=== PATIENT | male | born 1955 | race Caucasian/White ===

== ENCOUNTER 2017-01-05 05:15 | Inpatient (IN) | payer MEDICAID, OTHER ==
[2017-01-05] MEDS ORDERED: Iohexol 240 (50 ml) PO ONE (06:15)
[2017-01-05] MEDS ORDERED: Sodium Chloride 0.9% 1,000 ML IV ONE ×2 (06:15→11:51)
--- NOTE | 2017-01-05 06:19 | C.PDOC ---
History Of Present Illness 61 year old male presents to the ED with complaints of 5 episodes of rectal bleeding since 4am this morning. Patient states blood is dark red and he denies any nausea, vomiting, or abdominal pain. Chief Complaint (Nursing): GI Problem History Per: Patient History/Exam Limitations: no limitations Onset/Duration Of Symptoms: Hrs (since 4 am ) Current Symptoms Are (Timing): Still Present Number Of Bleeding Episodes: Multiple: (5 episodes) Associated Symptoms: Rectal Bleeding. denies: Nausea, Vomiting, Lightheadedness Recent travel outside of the [place]: No Past Medical History Reviewed: Historical Data, Nursing Documentation, Vital Signs Vital Signs: Last Vital Signs Temp 97.6 F 01/05/17 05:27 Pulse 81 01/05/17 05:27 Resp 14 01/05/17 05:27 BP 116/76 01/05/17 05:27 Pulse Ox 98 01/05/17 06:24 Family History: States: Unknown Family Hx - Social History Hx Tobacco Use: Yes Hx Alcohol Use: Yes Hx Substance Use: No - Immunization History Hx Tetanus Toxoid Vaccination: No Hx Influenza Vaccination: No Hx Pneumococcal Vaccination: No Review Of Systems Constitutional: Negative for: Fever, Chills, Sweats Cardiovascular: Negative for: Chest Pain, Palpitations Respiratory: Negative for: Cough, Shortness of Breath Gastrointestinal: Positive for: Other (rectal bleeding ). Negative for: Nausea , Vomiting, Abdominal Pain Neurological: Negative for: Headache, Dizziness Physical Exam - Physical Exam Appears: Non-toxic, No Acute Distress Skin: Warm, Dry Head: Atraumatic Oral Mucosa: Moist Neck: Supple Cardiovascular: Rhythm Regular Respiratory: No Rales, No Rhonchi, No Stridor, No Wheezing Gastrointestinal/Abdominal: Soft, Tenderness (mild right sided tenderness ), No Distention, No Guarding, No Rebound Rectal: No Mass, Other (dark blood present during rectal exam ) Extremity: Normal ROM, No Tenderness Neurological/Psych: Oriented x3 ED Course And Treatment - Laboratory Results Result Diagrams: 01/05/17 06:27 01/05/17 06:27 O2 Sat by Pulse Oximetry: 98 (room air ) Disposition - Disposition Disposition Time: 07:00 Condition: STABLE - POA Present On Arrival: None - Clinical Impression Clinical Impression: Rectal bleed - Scribe Statement The provider has reviewed the documentation as recorded by the Mcibmichelle Jose All medical record entries made by the Scribe were at my direction and personally dictated by me. I have reviewed the chart and agree that the record accurately reflects my personal performance of the history, physical exam, medical decision making, and the department course for this patient. I have also personally directed, reviewed, and agree with the discharge instructions and disposition.
[2017-01-05 06:34] LABS: BASO % 0.6 % (0.0-2.0); EOS # 0.1 K/uL (0.0-0.7); EOS % 1.5 % (0.0-4.0); HEMATOCRIT 36.9 % (35.0-51.0); LYMPH # 1.7 K/uL (1.0-4.3); LYMPH % 35.2 % (20.0-40.0); MEAN CELL VOLUME 91.7 fL (80.0-94.0); MEAN CORPUSCULAR HEMOGLOBIN 30.7 pg (27.0-31.0); MEAN CORPUSCULAR HGB CONC 33.5 g/dL (33.0-37.0); MEAN PLATELET VOLUME 7.2 fL (7.2-11.7); MONO # 0.3 K/uL (0.0-0.8); MONO % 6.3 % (0.0-10.0); NRBC % 0.1 % (0.0-2.0); RED CELL DISTRIBUTION WIDTH 13.3 % (11.5-14.5); WHITE BLOOD COUNT 4.7 K/uL (4.8-10.8)
[2017-01-05] MEDS ORDERED: Sodium Chloride 0.9% 1,000 ML ONE ×2 (06:36→12:16)
[2017-01-05] MEDS ORDERED: Iohexol 240 (50 ml) ONE (06:36)
[2017-01-05 06:49] LABS: CHLORIDE 106 mmol/L (98-107); POTASSIUM 4.1 mmol/L (3.6-5.2); SODIUM 138 mmol/L (132-148)
[2017-01-05 06:51] LABS: ALB/GLOB RATIO 1.4 (1.0-2.1); AST/SGOT 29 U/L (17-59); CARBON DIOXIDE 23 mmol/L (22-30); GFR AFRICAN-AMERICAN > 60; TOTAL PROTEIN 6.4 g/dL (6.3-8.3)
[2017-01-05 06:52] LABS: ALKALINE PHOSPHATASE 58 U/L (38-126); ALT/SGPT 21 U/L (21-72); BLOOD UREA NITROGEN 18 mg/dL (9-20); CALCIUM 8.1 mg/dl (8.6-10.4); GLUCOSE,RANDOM 125 mg/dL (75-110)
[2017-01-05] MEDS ORDERED: Iodixanol 320 mg/ml 150 ml Bottle IV ONE (08:24)
[2017-01-05 09:32] LABS: RBC URINE < 1 /hpf (0-3); URINE BILIRUBIN NEGATIVE (NEGATIVE); URINE BLOOD NEGATIVE (NEGATIVE); URINE COLOR Straw (YELLOW); URINE GLUCOSE (UA) NORMAL (Normal); URINE KETONE NEGATIVE (NEGATIVE); URINE LEUKOCYTE ESTERASE NEG Leu/uL (Negative); URINE PROTEIN NEGATIVE (NEGATIVE); URINE UROBILINOGEN NORMAL mg/dL (0.2-1.0); WBC URINE < 1 /hpf (0-5)
--- NOTE | 2017-01-05 09:34 | RAD ---
PROCEDURE: CHEST RADIOGRAPH, 1 VIEW HISTORY: GI Bleeding COMPARISON: 06/28/2014 FINDINGS: LUNGS: Mild venous congestion. Mild patchy increased markings at the left lung base. PLEURA: No pneumothorax or pleural fluid seen. CARDIOVASCULAR: Mild cardiomegaly. OSSEOUS STRUCTURES: No significant abnormalities. VISUALIZED UPPER ABDOMEN: Normal. OTHER FINDINGS: None. IMPRESSION: Mild venous congestion. Mild patchy increased markings at the left lung base. Mild cardiomegaly.
--- NOTE | 2017-01-05 10:14 | CT ---
PROCEDURE: CT Abdomen and Pelvis with contrast HISTORY: GI bleeding COMPARISON: None. TECHNIQUE: Contrast dose: 100 mL Visipaque 320 Radiation dose: Total exam DLP = 495.17 mGy-cm. This CT exam was performed using one or more of the following dose reduction techniques: Automated exposure control, adjustment of the mA and/or kV according to patient size, and/or use of iterative reconstruction technique. FINDINGS: LOWER THORAX: Unremarkable. LIVER: Please note that the examination is limited in that the most superior aspect of the right hepatic lobe has not been included in this examination. This is due to elevation of the right matt diaphragm, possibly due to eventration or diaphragmatic paralysis. There is no focal mass. There is no biliary ductal dilatation. The liver is normal in size and contour. GALLBLADDER AND BILE DUCTS: Unremarkable. PANCREAS: Unremarkable. No gross lesion or ductal dilatation. SPLEEN: Unremarkable. ADRENALS: Unremarkable. No mass. KIDNEYS AND URETERS: Unremarkable. No hydronephrosis. No solid mass. VASCULATURE: Unremarkable. No aortic aneurysm. BOWEL: Scattered colonic diverticulae. No evidence of diverticulitis. No bowel obstruction. APPENDIX: Normal appendix. PERITONEUM: Unremarkable. No free fluid. No free air. LYMPH NODES: Unremarkable. No enlarged lymph nodes. BLADDER: Unremarkable. REPRODUCTIVE: Normal prostate BONES: No acute fracture. OTHER FINDINGS: None. IMPRESSION: No acute abnormality. Scattered colonic diverticulae without evidence of diverticulitis. Elevated right hemidiaphragm may reflect diaphragmatic paralysis or eventration. Please note that the most superior portion of the right hepatic lobe is not included in this examination.
[2017-01-05 11:00] LABS: MEAN CELL VOLUME 92.5 fL (80.0-94.0); MEAN CORPUSCULAR HEMOGLOBIN 31.1 pg (27.0-31.0); MEAN CORPUSCULAR HGB CONC 33.7 g/dL (33.0-37.0); MEAN PLATELET VOLUME 7.1 fL (7.2-11.7); RED CELL DISTRIBUTION WIDTH 13.2 % (11.5-14.5); WHITE BLOOD COUNT 6.6 K/uL (4.8-10.8)
[2017-01-05] MEDS ORDERED: Bisacodyl 5mg EC Tab PO ONE (11:48)
--- NOTE | 2017-01-05 11:54 | CP.PCM.CON ---
History of Present Illness - History of Present Illness History of Present Illness: Case discussed with Dr Hussein in ER of 61 yo male with no known GI history who presented with several episodes of witnessed BRBPR turning toilet water red on cellphone photo. No pain but had some lower abdominal discomfort. CT SCan shows no obstruction or colitis, mass. Asked to evaluate patient who wishes to go home today. NOted to have a 2gram drop in H/H from last night to this morning. Mildly orthostatic BP changes as well. Patient usually under care of Dr Daugherty. No h/o polyps of IBD. Asked to evaluate for LGI bleeding and anemia. Patient was scheduled to have colonoscopy and had started prep but was noted to have some flipped T-waves on EKG with negative cardiac enzymes. Echo was ordered and Cardiology recommended deferring his examination. He had completed 3 /4 of preparation given with no further bleeding. Patient will be kept on clear liquids for now and if further cardiac workup is recommended he can complete his GI work up as an outpatient in absence of further bleeding. Review of Systems - Cardiovascular Cardiovascular: As Per HPI. absent: Chest Pain, Chest Pain at Rest, Diaphoresis , Dyspnea, Edema, Palpitations - Respiratory Respiratory: absent: Cough, Chest Congestion - Gastrointestinal Gastrointestinal: As Per HPI - Neurological Neurological: absent: Abnormal Speech, Confusion, Headaches, Syncope Past Patient History - Past Medical History & Family History Past Medical History?: No - Past Social History Smoking Status: Light Smoker < 10 Cigarettes Daily Chewing Tobacco Use: No Cigar Use: No Alcohol: None Drugs: Denies, Inhalants Home Situation {Lives}: With Family - CARDIAC Hx Cardiac Disorders: No - PULMONARY Hx Respiratory Disorders: No - NEUROLOGICAL Hx Neurological Disorder: No - HEENT Hx HEENT Problems: No - RENAL Hx Chronic Kidney Disease: No - ENDOCRINE/METABOLIC Hx Endocrine Disorders: No - HEMATOLOGICAL/ONCOLOGICAL Hx Cirrhosis: No Hx Hepatitis A: No Hx Hepatitis B: No Hx Hepatitis C: No - MUSCULOSKELETAL/RHEUMATOLOGICAL Hx Falls: No - GASTROINTESTINAL Hx Bowel Surgery: No Hx Clostridium Difficile: No Hx Colitis: No Hx Colostomy: No Hx Constipation: No Hx Crohn's Disease: No Hx Diarrhea: No Hx Diverticulitis: No Hx Esophageal Varices: No Hx Fatty Liver Disease: No Hx Gall Bladder Disease: No Hx Gastritis: No Hx Gastroesophageal Reflux: Yes Hx Hemorrhoids: Yes Hx Ileostomy: No Hx Irritable Bowel: No Hx Liver Failure: No Hx Nausea: No Hx Pancreatitis: No HX Swallowing Problems: No Hx Ulcer: No Hx Vomiting: No - PSYCHIATRIC Hx Substance Use: No - SURGICAL HISTORY Hx Surgeries: No - ANESTHESIA Hx Anesthesia: No Meds Allergies/Adverse Reactions: Allergies Allergy/AdvReac Type Severity Reaction Status Date / Time No Known Allergies Allergy Verified 01/05/17 05:31 - Medications Medications: Current Medications Sodium Chloride (Sodium Chloride 0.9%) 1,000 mls @ 100 mls/hr IV .Q10H ONE Stop: 01/05/17 16:14 Last Admin: 01/05/17 06:41 Dose: 100 mls/hr Physical Exam - Constitutional Appears: No Acute Distress - Head Exam Head Exam: ATRAUMATIC, NORMOCEPHALIC - Eye Exam Eye Exam: EOMI, PERRL - Respiratory Exam Respiratory Exam: Clear to Auscultation Bilateral, NORMAL BREATHING PATTERN - Cardiovascular Exam Cardiovascular Exam: REGULAR RHYTHM, +S1 - GI/Abdominal Exam GI & Abdominal Exam: Normal Bowel Sounds, Soft. absent: Mass, Rebound, Tenderness - Rectal Exam Rectal Exam: Bloody Stool - Extremities Exam Extremities exam: Positive for: normal inspection. Negative for: pedal edema - Neurological Exam Neurological exam: Alert, Oriented x3 - Psychiatric Exam Psychiatric exam: Normal Affect, Normal Mood - Skin Skin Exam: Dry, Warm Results - Vital Signs Recent Vital Signs: Last Vital Signs Temp 97.6 F 01/05/17 05:27 Pulse 81 01/05/17 05:27 Resp 14 01/05/17 05:27 BP 116/76 01/05/17 05:27 Pulse Ox 98 01/05/17 08:44 - Labs Result Diagrams: 01/05/17 13:18 01/05/17 06:27 - Imaging and Cardiology CT scan - abdomen Status: Report reviewed by me Assessment & Plan (1) Anemia due to blood loss Status: Acute Priority: High (2) Lower abdominal pain Status: Acute Priority: Medium (3) Lower GI bleed Assessment and Plan: After discussion with ER patient to be admitted for observation and colonoscopy to be performed later today or tomorrow as schedule permits. r/o diverticular bleeding, infectious, ischemic, IBD, occult malignancy or polyposis, angiodysplasia possible as well vs hemorrhoidal bleeding. DOubt UGI source given normal BUN/Cr. Awaiting Cardiology to see (as of 5:35 pm has not yet been seen) and determine if Cardiac Cath or stress testing is needed prior to colonoscopy. Would have low threshhold to transfuse to improve oxygen carrying capacity in setting of likely CAD. IV fluids NPO and prep order as entered Monitor CBC IV Protonix given in ED Will plan for colonoscopy when cleared by Cardiology or as outpatient when Cardiac workup is completed. Case discussed with Dr Salinas at bedside. Family aware of plans and need to remain on clear liquids to facilitate colonoscopy prior to discharge if possible. Status: Acute Priority: High (4) Abnormal EKG Assessment and Plan: Awaiting CArdiology clearance from Dr Glynn due to ischemic changes on EKG which may necessitate Cardiac Cath or EST prior to testing. Cardiac enzymes and transfuse if hgb<9. Status: Acute Priority: High
--- NOTE | 2017-01-05 12:48 | CP.PCM.HP ---
Addendum entered and electronically signed by Ninfa Keenan 01/05/17 20:59 : Chief Complaint: Rectal bleeding Review of Systems: - Constitutional Constitutional: absent: As Per HPI, Chills, Fatigue, Fever, Night Sweats HEENT: -absent: blurry vision, double vision, headaches - Cardiovascular Cardiovascular: Lightheadedness. absent: Chest Pain, Diaphoresis, Dyspnea, Edema, Palpitations, Pedal Edema - Respiratory Respiratory: absent: Cough, Dyspnea, Dyspnea on Exertion, Wheezing, Stridor - Gastrointestinal Gastrointestinal: Hematochezia. absent: Abdominal Pain, Cramping, Nausea, Vomiting : absent: difficulty urinating, dysuria, hematuria - Musculoskeletal Musculoskeletal: absent: Abnormal Gait, Joint Swelling, Muscle Weakness - Neurological Neurological: absent: Abnormal Speech, Confusion, Dizziness - Psychiatric Psychiatric: absent: Change in Appetite Skin: absent: rashes, bruising Heme: present: blood per rectum endocrine: absent: change in body appearance Original Note: <Krysta Salinas V - Last Filed: 01/05/17 20:05> Meds Allergies/Adverse Reactions: Allergies Allergy/AdvReac Type Severity Reaction Status Date / Time No Known Allergies Allergy Verified 01/05/17 05:31 Results - Vital Signs Recent Vital Signs: Last Vital Signs Temp 97.9 F 01/05/17 15:20 Pulse 79 01/05/17 15:20 Resp 20 01/05/17 15:20 BP 105/63 01/05/17 15:20 Pulse Ox 95 01/05/17 15:20 - Labs Result Diagrams: 01/05/17 13:18 01/05/17 06:27 Labs: Laboratory Results - last 24 hr 01/05/17 01/05/17 01/05/17 13:18 13:18 13:18 WBC 7.2 RBC 3.08 L Hgb 9.8 L Hct 28.2 L MCV 91.6 MCH 31.8 H MCHC 34.8 RDW 12.8 Plt Count 262 MPV 7.5 Hemoglobin A1c 5.6 Total Creatine Kinase 85 CK-MB (Mass) 1.01 Troponin I, Quant < 0.0120 NT-Pro-B Natriuret Pep 160 Triglycerides 178 H D Cholesterol 144 LDL Cholesterol Direct 111 HDL Cholesterol 22 L TSH 3rd Generation 1.81 01/05/17 19:27 WBC RBC Hgb Hct MCV MCH MCHC RDW Plt Count MPV Hemoglobin A1c Total Creatine Kinase 80 CK-MB (Mass) 1.18 Troponin I, Quant < 0.0120 NT-Pro-B Natriuret Pep Triglycerides Cholesterol LDL Cholesterol Direct HDL Cholesterol TSH 3rd Generation Attending/Attestation - Attestation I have personally seen and examined this patient.: Yes I have fully participated in the care of the patient.: Yes I have reviewed all pertinent clinical information: Yes Notes (Text): Patient seen, examined, and case discussed with day-time resident. GI (Dr. Harper) on board-->help appreciated Patient reported rectal bleeding this morning at 4am, about 3 episodes, which worried the daughter, who brought her father to the hospital, and in the ED observed rectal bleeding. Patient reports prominent history of alcohol, about 10 -14 glasses of wine on the weekend, and is a current smoker. Patient takes a prophylactic aspirin daily. Discussed with patient's PMD: Dr. Ellis, patient comes once a year with history of arthritis and currently on Aspirin per record. No known cardiac history. Patient's ekg showed T wave inversions. Cardiology (Dr. Glynn) on board-->help appreciated. Recommended for echocardiogram, hgba1c, tsh, probnp, and porter. PORTER is negative. Discussed with GI and cardiology-->patient to be evaluated by cardiology. Colonoscopy cancelled in light of cardiac clearance given EKG. Per GI, if he receives cardiac clearance, possible to perform colonoscopy tomorrow. Discussed thoroughly with patient and patient's daughter, Arianna throughout the day regarding events. Assessment/Plan 1) Lower GI Bleed * Consult: Dr. Harper (GI) on board-->help appreciated * Colonoscopy cancelled secondary to abnormal EKG prompting cardiac clearance * Patient is consented for blood transfusion, witnessed by myself, and ED nurse , Alirio. * Follow-up H/H. Repeat CBC at 22:00, if hgb falls below 9, will transfusion. * If patient receives cardiac clearance, possible re-attempt in the morning per discussion with GI * Protonix 40mg IV Q 12hours * Clear diet; NPO after midnight 2) Abnormal EKG * biphasic T waves~Wellen syndrome? * ordered for Echocardiogram * Ordered for follow-up EKGs and PORTER * hgba1c, TSH, probnp, lipid panel * Patient takes aspirin routinely as prophylactic measure 3) Arthritis history * hold NSAIDs 4) Prophylactic measure * Contraindications to VTE ppx secondary to lower GI bleed * Protonix 40mg IV Q 12hours <Ninfa Keenan - Last Filed: 01/05/17 20:51> History of Present Illness - History of Present Illness History of Present Illness: Patient is a 61 y/o male with PMH of GERD and hyperlipidemia who presents to the ER for bright red blood in stool. Patient woke up for work at 4am and felt he was straining as he went to the bathroom. Patient saw the toilet bowl filled with blood. This occurred two more times. Patient had no abdominal pain. In ER patient had another witnessed bloody BM. Patient denies any new foods. He has had no problems with constipation or hemorrhoids in the past. In ED patient's ekg found to have t wave inversions and echo ordered. Patient denies headache, shortness of breath, chest pain, abdominal pain. Patient state he feels slightly light headed when he gets up from bed. Present on Admission - Present on Admission Any Indicators Present on Admission: No History of DVT/PE: No History of Uncontrolled Diabetes: No Urinary Catheter: No Decubitus Ulcer Present: No Review of Systems - Constitutional Constitutional: absent: As Per HPI, Chills, Fatigue, Fever, Night Sweats - Cardiovascular Cardiovascular: Lightheadedness. absent: Chest Pain, Diaphoresis, Dyspnea, Edema, Palpitations, Pedal Edema - Respiratory Respiratory: absent: Cough, Dyspnea, Dyspnea on Exertion, Wheezing, Stridor - Gastrointestinal Gastrointestinal: Hematochezia. absent: Abdominal Pain, Cramping, Nausea, Vomiting - Musculoskeletal Musculoskeletal: absent: Abnormal Gait, Joint Swelling, Muscle Weakness - Neurological Neurological: absent: Abnormal Speech, Confusion, Dizziness - Psychiatric Psychiatric: absent: Change in Appetite Past Patient History - Past Medical History & Family History Past Medical History?: No Pertinent Family History: Mom: DM, Brother: prostate cancer - Past Social History Smoking Status: Light Smoker < 10 Cigarettes Daily Alcohol: Other (drink 10-15 drinks once per week) Drugs: Denies - MUSCULOSKELETAL/RHEUMATOLOGICAL Hx Falls: No - PSYCHIATRIC Hx Substance Use: No - SURGICAL HISTORY Hx Surgeries: No - ANESTHESIA Hx Anesthesia: No Physical Exam - Constitutional Appears: No Acute Distress - Head Exam Head Exam: ATRAUMATIC, NORMAL INSPECTION, NORMOCEPHALIC - Eye Exam Eye Exam: EOMI, Normal appearance, PERRL - ENT Exam ENT Exam: Mucous Membranes Moist, Normal Exam - Neck Exam Neck exam: Positive for: Normal Inspection - Respiratory Exam Respiratory Exam: Clear to Auscultation Bilateral, NORMAL BREATHING PATTERN. absent: Rales, Rhonchi, Wheezes, Respiratory Distress, Stridor - Cardiovascular Exam Cardiovascular Exam: REGULAR RHYTHM, RRR. absent: Gallop, JVD, Rubs, Systolic Murmur - GI/Abdominal Exam GI & Abdominal Exam: Normal Bowel Sounds, Soft. absent: Distended, Firm, Guarding, Tenderness - Extremities Exam Extremities exam: Positive for: normal inspection. Negative for: pedal edema, tenderness - Back Exam Back exam: NORMAL INSPECTION - Neurological Exam Neurological exam: Alert, Oriented x3 - Psychiatric Exam Psychiatric exam: Normal Affect, Normal Mood - Skin Skin Exam: Normal Color, Warm Results - Vital Signs Recent Vital Signs: Last Vital Signs Temp 97.6 F 01/05/17 05:27 Pulse 81 01/05/17 05:27 Resp 14 01/05/17 05:27 BP 116/76 01/05/17 05:27 Pulse Ox 98 01/05/17 08:44 - Labs Result Diagrams: 01/05/17 13:18 01/05/17 06:27 Assessment & Plan (1) Lower GI bleed Assessment and Plan: On telemetry GI (Dr. Harper) on board and tentatively plan for colonoscopy tomorrow pending cardio clearance type and cross done blood transfusion consent received and risks v benefits discussed to patient, witnessed patient on CLD, NPO after midnight Protonix 40 mg IVq 12 hours Risk factors: smoking, alcohol, aspirin CT ab/pelvis: No acute abnormality. Scattered colonic diverticulae without evidence of diverticulitis. Elevated right hemidiaphragm may reflect diaphragmatic paralysis. Please note most superior portion of the right hepatic lobe is not included in this. Status: Acute Priority: High (2) EKG abnormality Assessment and Plan: T Wave Inversions Risk factors: smoker, drinking, age, male; no known cardiac hx, no family hx Cardiology (Dr. Glynn) on case Echo:Left ventricular systolic function is normal. Normal LV segmental wall motion. Transmitral doppler flow pattern is Grade 1- abnormal relaxation pattern. Normal left atrial pressure by tissue doppler. right ventricular systolic function is normal. left atrium is mildly dilated. no significant valvular abnormality. no pericardial effusion. HgA1C:5.6 TSH:1.81 proBNP:160 PORTER x2 negative 1 PORTER pending FLP- triglycerides:178, cholesterol:144, LDL:111, HDL:21 compared prior EKG, stress test normal in 2014 Status: Acute (3) High cholesterol Assessment and Plan: Fasting lipid panel, see above Status: Acute (4) Prophylactic measure Assessment and Plan: No VTE prophylaxis Protonix 40 mg IV Q 12 hours Daughter contact - Baylee #[phone] Status: Acute Decision To Admit - . Bed Request Type: Telemetry (gi bleed, abnormal ekg)
[2017-01-05] MEDS ORDERED: Peg-Electrolyte Oral Soln 4L (Golytely) PO ONE (13:00)
[2017-01-05 13:33] LABS: HEMATOCRIT 28.2 % (35.0-51.0); MEAN CELL VOLUME 91.6 fL (80.0-94.0); MEAN CORPUSCULAR HEMOGLOBIN 31.8 pg (27.0-31.0); MEAN CORPUSCULAR HGB CONC 34.8 g/dL (33.0-37.0); MEAN PLATELET VOLUME 7.5 fL (7.2-11.7); RED CELL DISTRIBUTION WIDTH 12.8 % (11.5-14.5); WHITE BLOOD COUNT 7.2 K/uL (4.8-10.8)
[2017-01-05 13:37] LABS: CHOLESTEROL 144 mg/dL (0-199)
[2017-01-05 14:08] LABS: THYROID STIMULATING HORMONE 1.81 mIU/L (0.46-4.68)
--- NOTE | 2017-01-05 17:25 | CARD ---
APPROVED REPORT EXAM: Two-dimensional and M-mode echocardiogram with Doppler and color Doppler. Other Information Quality : GoodRhythm : NSR INDICATION Abnormal EKG/Arrhythmia Chest Pain RISK FACTORS Diabetes M-Mode DIMENSIONS RVDd1.80 (2.1-3.2cm)Left Atrium (MM)4.10 (2.5-4.0cm) IVSd1.15 (0.7-1.1cm)Aortic Root3.23 (2.2-3.7cm) LVDd5.38 (4.0-5.6cm)Aortic Cusp Exc.1.98 (1.5-2.0cm) PWd1.18 (0.7-1.1cm)FS (%) 34 % LVDs3.54 (2.0-3.8cm)LVEF (%)63 (>50%) Aortic Valve AoV Peak Tmkltsdp254.7cm/Sammy Peak GR.14mmHg Mitral Valve MV E Nxtgqvdm14.9cm/sMV A Lbfmknll41.1cm/sE/A ratio0.6 TDI E/Lateral E'0.0E/Medial E'0.0 Tricuspid Valve TR Peak [id number]/sTR Peak Gr.[id number] LEFT VENTRICLE The left ventricle is normal size. There is normal left ventricular wall thickness. The left ventricular systolic function is normal. The left ventricular ejection fraction is within the normal range. There is normal LV segmental wall motion. Transmitral Doppler flow pattern is Grade I-abnormal relaxation pattern. Normal left atrial pressure by Tissue Doppler. RIGHT VENTRICLE The right ventricle is normal size. The right ventricular systolic function is normal. ATRIA The left atrium is mildly dilated. The right atrium size is normal. AORTIC VALVE The aortic valve is normal in structure. No aortic regurgitation is present. MITRAL VALVE The mitral valve is normal in structure. There is no mitral valve regurgitation noted. TRICUSPID VALVE The tricuspid valve is normal in structure. There is trace to mild tricuspid regurgitation. Right ventricular systolic pressure is estimated at less than 30 mmHg. PULMONIC VALVE The pulmonary valve is normal in structure. GREAT VESSELS The aortic root is normal in size. The IVC is normal in size and collapses >50% with inspiration. PERICARDIAL EFFUSION There is no pericardial effusion. <Conclusion> The left ventricular systolic function is normal. There is normal LV segmental wall motion. Transmitral Doppler flow pattern is Grade I-abnormal relaxation pattern. Normal left atrial pressure by Tissue Doppler. The right ventricular systolic function is normal. The left atrium is mildly dilated. No significant valvular abnormality. No pericardial effusion.
--- NOTE | 2017-01-05 22:49 | CP.PCM.CON ---
History of Present Illness - History of Present Illness History of Present Illness: Patient seen and evaluated Scheduled for Colonoscopy tomorrow Pre Op cardiac risk assessment requested Patient denies hx of CAD or cardiac symptoms Review of Systems - Constitutional Constitutional: absent: As Per HPI, Chills, Fatigue, Fever, Night Sweats - Cardiovascular Cardiovascular: Lightheadedness. absent: Chest Pain, Diaphoresis, Dyspnea, Edema, Palpitations, Pedal Edema - Respiratory Respiratory: absent: Cough, Dyspnea, Dyspnea on Exertion, Wheezing, Stridor - Gastrointestinal Gastrointestinal: Hematochezia. absent: Abdominal Pain, Cramping, Nausea, Vomiting - Musculoskeletal Musculoskeletal: absent: Abnormal Gait, Joint Swelling, Muscle Weakness - Neurological Neurological: absent: Abnormal Speech, Confusion, Dizziness - Psychiatric Psychiatric: absent: Change in Appetite Past Patient History - Past Medical History & Family History Past Medical History?: No Pertinent Family History: Mom: DM, Brother: prostate cancer - Past Social History Smoking Status: Light Smoker < 10 Cigarettes Daily Alcohol: Other (drink 10-15 drinks once per week) Drugs: Denies - MUSCULOSKELETAL/RHEUMATOLOGICAL Hx Falls: No - PSYCHIATRIC Hx Substance Use: No - SURGICAL HISTORY Hx Surgeries: No - ANESTHESIA Hx Anesthesia: No Physical Exam - Constitutional Appears: No Acute Distress - Head Exam Head Exam: ATRAUMATIC, NORMAL INSPECTION, NORMOCEPHALIC - Eye Exam Eye Exam: EOMI, Normal appearance, PERRL - ENT Exam ENT Exam: Mucous Membranes Moist, Normal Exam - Neck Exam Neck exam: Positive for: Normal Inspection - Respiratory Exam Respiratory Exam: Clear to Auscultation Bilateral, NORMAL BREATHING PATTERN. absent: Rales, Rhonchi, Wheezes, Respiratory Distress, Stridor - Cardiovascular Exam Cardiovascular Exam: REGULAR RHYTHM, RRR. absent: Gallop, JVD, Rubs, Systolic Murmur - GI/Abdominal Exam GI & Abdominal Exam: Normal Bowel Sounds, Soft. absent: Distended, Firm, Guarding, Tenderness - Extremities Exam Extremities exam: Positive for: normal inspection. Negative for: pedal edema, tenderness - Back Exam Back exam: NORMAL INSPECTION - Neurological Exam Neurological exam: Alert, Oriented x3 - Psychiatric Exam Psychiatric exam: Normal Affect, Normal Mood - Skin Skin Exam: Normal Color, Warm Past Patient History - Past Medical History & Family History Past Medical History?: No - Past Social History Smoking Status: Light Smoker < 10 Cigarettes Daily Alcohol: Other (drink 10-15 drinks once per week) Drugs: Denies - CARDIAC Hx Cardiac Disorders: No - PULMONARY Hx Respiratory Disorders: No - NEUROLOGICAL Hx Neurological Disorder: No - HEENT Hx HEENT Problems: No - RENAL Hx Chronic Kidney Disease: No - ENDOCRINE/METABOLIC Hx Endocrine Disorders: No - HEMATOLOGICAL/ONCOLOGICAL Hx Cirrhosis: No Hx Hepatitis A: No Hx Hepatitis B: No Hx Hepatitis C: No - MUSCULOSKELETAL/RHEUMATOLOGICAL Hx Falls: No - GASTROINTESTINAL Hx Bowel Surgery: No Hx Clostridium Difficile: No Hx Colitis: No Hx Colostomy: No Hx Constipation: No Hx Crohn's Disease: No Hx Diarrhea: No Hx Diverticulitis: No Hx Esophageal Varices: No Hx Fatty Liver Disease: No Hx Gall Bladder Disease: No Hx Gastritis: No Hx Gastroesophageal Reflux: Yes Hx Hemorrhoids: Yes Hx Ileostomy: No Hx Irritable Bowel: No Hx Liver Failure: No Hx Nausea: No Hx Pancreatitis: No HX Swallowing Problems: No Hx Ulcer: No Hx Vomiting: No - PSYCHIATRIC Hx Substance Use: No - SURGICAL HISTORY Hx Surgeries: No - ANESTHESIA Hx Anesthesia: No Meds Allergies/Adverse Reactions: Allergies Allergy/AdvReac Type Severity Reaction Status Date / Time No Known Allergies Allergy Verified 01/05/17 05:31 Results - Vital Signs Recent Vital Signs: Last Vital Signs Temp 97.9 F 01/05/17 15:20 Pulse 79 01/05/17 15:20 Resp 20 01/05/17 15:20 BP 105/63 01/05/17 15:20 Pulse Ox 95 01/05/17 15:20 - Labs Result Diagrams: 01/06/17 11:34 01/06/17 11:34 Labs: Laboratory Results - last 24 hr 01/05/17 01/05/17 01/05/17 13:18 13:18 13:18 WBC 7.2 RBC 3.08 L Hgb 9.8 L Hct 28.2 L MCV 91.6 MCH 31.8 H MCHC 34.8 RDW 12.8 Plt Count 262 MPV 7.5 Hemoglobin A1c 5.6 Total Creatine Kinase 85 CK-MB (Mass) 1.01 Troponin I, Quant < 0.0120 NT-Pro-B Natriuret Pep 160 Triglycerides 178 H D Cholesterol 144 LDL Cholesterol Direct 111 HDL Cholesterol 22 L TSH 3rd Generation 1.81 01/05/17 19:27 WBC RBC Hgb Hct MCV MCH MCHC RDW Plt Count MPV Hemoglobin A1c Total Creatine Kinase 80 CK-MB (Mass) 1.18 Troponin I, Quant < 0.0120 NT-Pro-B Natriuret Pep Triglycerides Cholesterol LDL Cholesterol Direct HDL Cholesterol TSH 3rd Generation Assessment & Plan - Assessment and Plan (Free Text) Assessment: Assessment & Plan (1) Lower GI bleed Assessment and Plan: On telemetry GI (Dr. Harper) on board and tentatively plan for colonoscopy tomorrow pending cardio clearance type and cross done blood transfusion consent received and risks v benefits discussed to patient, witnessed patient on CLD, NPO after midnight Protonix 40 mg IVq 12 hours Risk factors: smoking, alcohol, aspirin CT ab/pelvis: No acute abnormality. Scattered colonic diverticulae without evidence of diverticulitis. Elevated right hemidiaphragm may reflect diaphragmatic paralysis. Please note most superior portion of the right hepatic lobe is not included in this. Status: Acute Priority: High (2) EKG abnormality Assessment and Plan: T Wave Inversions Risk factors: smoker, drinking, age, male; no known cardiac hx, no family hx Echo:Left ventricular systolic function is normal. Normal LV segmental wall motion. Transmitral doppler flow pattern is Grade 1- abnormal relaxation pattern. Normal left atrial pressure by tissue doppler. right ventricular systolic function is normal. left atrium is mildly dilated. no significant valvular abnormality. no pericardial effusion. HgA1C:5.6 TSH:1.81 proBNP:160 PORTER x2 negative 1 PORTER pending FLP- triglycerides:178, cholesterol:144, LDL:111, HDL:21 compared prior EKG, stress test normal in 2014 Status: Acute (3) High cholesterol Assessment and Plan: Fasting lipid panel, see above Status: Acute (4) Prophylactic measure Assessment and Plan: No VTE prophylaxis Protonix 40 mg IV Q 12 hours Daughter contact - Baylee #[phone] Status: Acute EKG T inversions non specific No cardiac symptoms Normal ECHO No significant cardiac risk factor Low risk for cardiac symptoms for Colonoscopy under conscious sedation
[2017-01-05 23:36] LABS: HEMATOCRIT 24.5 % (35.0-51.0); MEAN CELL VOLUME 91.3 fL (80.0-94.0); MEAN CORPUSCULAR HEMOGLOBIN 30.9 pg (27.0-31.0); MEAN CORPUSCULAR HGB CONC 33.8 g/dL (33.0-37.0); MEAN PLATELET VOLUME 7.4 fL (7.2-11.7); RED CELL DISTRIBUTION WIDTH 13.1 % (11.5-14.5)
[2017-01-06] MEDS: Sodium Chloride 0.9% 1,000 ML IV SCH ×5 (03:47→23:45)
[2017-01-06] MEDS ORDERED: Magnesium Citrate Oral SOL (300 ml) PO ONE (06:14)
[2017-01-06 11:39] LABS: HEMATOCRIT 30.3 % (35.0-51.0); MEAN CELL VOLUME 91.1 fL (80.0-94.0); MEAN CORPUSCULAR HEMOGLOBIN 30.5 pg (27.0-31.0); MEAN CORPUSCULAR HGB CONC 33.4 g/dL (33.0-37.0); MEAN PLATELET VOLUME 7.3 fL (7.2-11.7); RED CELL DISTRIBUTION WIDTH 13.3 % (11.5-14.5); WHITE BLOOD COUNT 4.1 K/uL (4.8-10.8)
[2017-01-06 12:04] LABS: CHLORIDE 109 mmol/L (98-107); SODIUM 140 mmol/L (132-148)
[2017-01-06 12:06] LABS: GFR AFRICAN-AMERICAN > 60
[2017-01-06 12:07] LABS: ALB/GLOB RATIO 1.4 (1.0-2.1); ALKALINE PHOSPHATASE 37 U/L (38-126); ALT/SGPT 25 U/L (21-72); AST/SGOT 22 U/L (17-59); BILIRUBIN,TOTAL 0.9 mg/dL (0.2-1.3); BLOOD UREA NITROGEN 11 mg/dL (9-20); CARBON DIOXIDE 23 mmol/L (22-30); GLUCOSE,RANDOM 102 mg/dL (75-110); TOTAL PROTEIN 5.3 g/dL (6.3-8.3)
[2017-01-06 12:08] LABS: CALCIUM 7.8 mg/dl (8.6-10.4); MAGNESIUM 2.3 mg/dL (1.6-2.3); PHOSPHOROUS 2.8 mg/dL (2.5-4.5)
[2017-01-06] MEDS ORDERED: Propofol 10 mg/ml Inj (20 ML) ONE ×2 (13:07→13:23)
[2017-01-06] MEDS ORDERED: Lactated Ringer's 500 ML IV ONE ×2 (13:16)
--- NOTE | 2017-01-06 13:36 | CP.PCM.PN ---
Subjective - Date & Time of Evaluation Date of Evaluation: 01/06/17 Time of Evaluation: 13:34 - Subjective Subjective: Colonoscopy: Blackish liquid stool noted all the way to the cecum, ?small bowel vs ugi source to be considered. No fresh blood or clots Rectal polyp removed with snare, 6mm sessile Scattered diverticulosis L>R sided Internal hemorrhoids without bleeding Rec/ No ASA or Nsaids, Plavix, etc. Protonix daily Monitor for active bleeding May need EGD which can be done as outpatient if stable of Monday if patient remains in the hospital. Repeat CBC Advance diet as tolerated. Objective - Vital Signs/Intake and Output Vital Signs (last 24 hours): Temp Pulse Resp BP Pulse Ox 97.8 F 54 L 19 128/48 L 98 01/06/17 08:02 01/06/17 13:17 01/06/17 13:17 01/06/17 13:17 01/06/17 13:17 Intake and Output: 01/06/17 01/06/17 06:59 18:59 Intake Total 1025 325 Balance 1025 325 - Medications Medications: Current Medications Sodium Chloride (Sodium Chloride 0.9%) 1,000 mls @ 125 mls/hr IV .Q8H [facility] Last Admin: 01/06/17 08:55 Dose: 125 mls/hr Pantoprazole Sodium (Protonix Inj) 40 mg IVP Q12H [facility] Last Admin: 01/06/17 10:48 Dose: 40 mg - Labs Labs: 01/06/17 11:34 01/06/17 11:34 PT 10.9 SECONDS (9.7-12.2) 01/05/17 06:27 INR 1.0 01/05/17 06:27 APTT 31 SECONDS (21-34) 01/05/17 06:27 Assessment and Plan (1) Anemia due to blood loss Status: Acute (2) Lower abdominal pain Status: Acute (3) Lower GI bleed Status: Acute (4) Abnormal EKG Status: Acute
[2017-01-06] MEDS ORDERED: ePHEDrine 50 mg/ml Inj ONE (13:49)
[2017-01-06] MEDS: Pantoprazole 40 mg EC Tab PO SCH (14:56)
--- NOTE | 2017-01-06 19:55 | CP.PCM.PN ---
<Ninfa Keenan Haroldo - Last Filed: 01/06/17 19:51> Subjective - Date & Time of Evaluation Date of Evaluation: 01/06/17 Time of Evaluation: 08:00 - Subjective Subjective: PGY-1 Medicine note- Dr. Salinas's service Patient seen and examined at bedside this morning. Patient was receiving his transfusion. Patient denies headache, blurry vision, chest pain, shortness of breath, abdominal pain. Patient denies episodes of bloody stool today. Objective - Vital Signs/Intake and Output Vital Signs (last 24 hours): Temp Pulse Resp BP Pulse Ox 97.7 F 61 20 104/66 97 01/06/17 15:00 01/06/17 15:00 01/06/17 15:00 01/06/17 15:00 01/06/17 15:00 Intake and Output: 01/06/17 01/07/17 18:59 06:59 Intake Total 425 Balance 425 - Medications Medications: Current Medications Sodium Chloride (Sodium Chloride 0.9%) 1,000 mls @ 125 mls/hr IV .Q8H [facility] Last Admin: 01/06/17 17:57 Dose: 125 mls/hr Pantoprazole Sodium (Protonix Ec Tab) 40 mg PO DAILY [facility] Last Admin: 01/06/17 14:56 Dose: 40 mg - Labs Labs: 01/06/17 11:34 01/06/17 11:34 PT 10.9 SECONDS (9.7-12.2) 01/05/17 06:27 INR 1.0 01/05/17 06:27 APTT 31 SECONDS (21-34) 01/05/17 06:27 - Constitutional Appears: Well, Non-toxic, No Acute Distress - Head Exam Head Exam: ATRAUMATIC, NORMAL INSPECTION, NORMOCEPHALIC - Eye Exam Eye Exam: EOMI, Normal appearance, PERRL - ENT Exam ENT Exam: Mucous Membranes Moist, Normal Exam - Neck Exam Neck Exam: Full ROM, Normal Inspection. absent: Lymphadenopathy - Respiratory Exam Respiratory Exam: Clear to Ausculation Bilateral, NORMAL BREATHING PATTERN. absent: Rales, Rhonchi, Wheezes, Respiratory Distress, Stridor - Cardiovascular Exam Cardiovascular Exam: REGULAR RHYTHM, RRR, +S1, +S2. absent: Gallop, Rubs, Murmur - GI/Abdominal Exam GI & Abdominal Exam: Soft, Normal Bowel Sounds. absent: Firm, Guarding, Rigid, Tenderness - Extremities Exam Extremities Exam: Full ROM. absent: Joint Swelling, Pedal Edema - Psychiatric Exam Psychiatric exam: Normal Affect, Normal Mood - Skin Skin Exam: Normal Color, Warm Assessment and Plan (1) Lower GI bleed Assessment & Plan: * Consult: Dr. Harper (GI) on board-->help appreciated * Colonoscopy performed by Dr. Harper on 01/06 - no fresh blood or clots, rectal polyp removed, scattered diverticulosis L>R, internal hemorrhoids without bleeding. rule out small bowel vs ugi source * Patient transfused 2 units given, HgB increased to 10.1 * Monitor HgB * If HgB drops again may need repeat infusion and possible endoscopy per GI * Protonix 40mg IV Q 12hours * advance diet as tolerated Status: Acute (2) EKG abnormality Assessment & Plan: T Wave Inversions Risk factors: smoker, drinking, age, male; no known cardiac hx, no family hx Cardiology (Dr. Glynn) on case Echo:Left ventricular systolic function is normal. Normal LV segmental wall motion. Transmitral doppler flow pattern is Grade 1- abnormal relaxation pattern. Normal left atrial pressure by tissue doppler. right ventricular systolic function is normal. left atrium is mildly dilated. no significant valvular abnormality. no pericardial effusion. HgA1C:5.6 TSH:1.81 proBNP:160 PORTER x2 negative 1 PORTER pending FLP- triglycerides:178, cholesterol:144, LDL:111, HDL:21 compared prior EKG, stress test normal in 2014 Dr. Glynn consulted, help appreciated. As per Dr. Glynn patient had cardiac clearance for colonoscopy. Status: Acute (3) High cholesterol Assessment & Plan: Fasting lipid panel, see above Status: Acute (4) Prophylactic measure Assessment & Plan: No VTE prophylaxis Protonix 40 mg IV Q 12 hours SCDs Daughter contact - Baylee #[phone] Status: Acute <Krysta Salinas V - Last Filed: 01/08/17 17:19> Objective - Vital Signs/Intake and Output Vital Signs (last 24 hours): Temp Pulse Resp BP Pulse Ox 97.5 F L 61 20 106/61 96 01/08/17 15:00 01/08/17 15:00 01/08/17 15:00 01/08/17 15:00 01/08/17 15:00 Intake and Output: 01/08/17 01/08/17 06:59 18:59 Intake Total 1979 1000 Balance 1979 1000 - Medications Medications: Current Medications Sodium Chloride (Sodium Chloride 0.9%) 1,000 mls @ 125 mls/hr IV .Q8H [facility] Last Admin: 01/08/17 15:44 Dose: Not Given Pantoprazole Sodium (Protonix Ec Tab) 40 mg PO DAILY [facility] Last Admin: 01/08/17 09:58 Dose: 40 mg - Labs Labs: 01/08/17 08:20 01/08/17 08:20 PT 10.9 SECONDS (9.7-12.2) 01/05/17 06:27 INR 1.0 01/05/17 06:27 APTT 31 SECONDS (21-34) 01/05/17 06:27 Assessment and Plan (1) Lower GI bleed Status: Acute (2) Abnormal EKG Status: Acute (3) Anemia due to blood loss Status: Acute (4) Prophylactic measure Status: Acute Attending/Attestation - Attestation I have personally seen and examined this patient.: Yes I have fully participated in the care of the patient.: Yes I have reviewed all pertinent clinical information, including history, physical exam and plan: Yes Notes (Text): This is a late computer entry for 01/06/17. Patient seen, examined and case discussed with day-time resident. Patient completed blood transfusion in the morning. Improved to 10.1 prior to procedure. Per cardiology, patient is low risk for cardiac for colonoscopy under conscious sedation prior to colonoscopy Patient seen post completion of colonoscopy. Discussed with patient and family at bedside regarding results found in the colonoscopy including polyp and diverticulosis. Will continue to monitor H/H Assessment/Plan 1) GI Bleed * Consult: Dr. Harper (GI) on board-->help appreciated * Patient is consented for blood transfusion, witnessed by myself, and ED nurse , Alirio on admission * Protonix 40mg PO daily * Completed colonoscopy 01/06/17 * CT Abdomen/Pelvis (01/05/17): no acute abnormality, Scattered colonic diverticulae without evidence of diverticulitis. Elevated right hemidiaphgram may reflect diaphragmamtic paralysis or eventration. Scattered colonic diverticulae. * Colonoscopy (01/06/17): one 6mm polyp in the rectum. resected and retrieved. Diverticulosis in the sigmoid colon, in descending colon and ascending colon, non-bleeding internal hemorrhoids-->No aspirin ibuprofen, naprozen, or NSAIDs for 10 days after polyp removal, possible EGD if patient remains in hospital, Advised Protonix 40mg PO daily * Hgb: 10.1 s/p RBC blood transfusion * IV fluids 2) Abnormal EKG * Consult: Dr. Glynn (cardiology) on the case-->help appreciated * EKG: T wave inversion on admission. * Echo: left ventricular systolic function is normal. Normal LV segmental wall motion. Transmitral doppler flow pattern is Grade I abnormal relaxation pattern. Normal left atrial pressure by tissue doppler, right ventricular systolic function is normal. left atrium is mildly dilated. no significant valvular abnormality. No pericardial effusion * Hgba1c: 5.6 * TSH: 1.81 * Probnp: 160 * PORTER X3: negative * T, Cholestrol: 144, LDL: 111: HDL: 21 * Stress test in 2013: normal * Per cardiology: low risk for cardiac symptoms for colonoscopy under conscious sedation prior to colonoscopy 3) Arthritis history * hold NSAIDs 4) Prophylactic measure * Contraindications to VTE ppx secondary to lower GI bleed * Protonix 40mg PO daily * Diet per GI * IV: 125 cc/hr
[2017-01-06 21:35] LABS: HEMATOCRIT 28.5 % (35.0-51.0); MEAN CELL VOLUME 90.6 fL (80.0-94.0); MEAN CORPUSCULAR HEMOGLOBIN 30.3 pg (27.0-31.0); MEAN CORPUSCULAR HGB CONC 33.4 g/dL (33.0-37.0); RED CELL DISTRIBUTION WIDTH 13.4 % (11.5-14.5); WHITE BLOOD COUNT 5.8 K/uL (4.8-10.8)
[2017-01-07] MEDS: Sodium Chloride 0.9% 1,000 ML IV SCH ×5 (06:26→23:45)
[2017-01-07 07:13] LABS: HEMATOCRIT 29.6 % (35.0-51.0); MEAN CELL VOLUME 90.9 fL (80.0-94.0); MEAN CORPUSCULAR HGB CONC 34.1 g/dL (33.0-37.0); MEAN PLATELET VOLUME 7.3 fL (7.2-11.7); RED CELL DISTRIBUTION WIDTH 13.4 % (11.5-14.5); WHITE BLOOD COUNT 5.9 K/uL (4.8-10.8)
[2017-01-07 07:22] LABS: CHLORIDE 104 mmol/L (98-107); POTASSIUM 3.8 mmol/L (3.6-5.2); SODIUM 138 mmol/L (132-148)
[2017-01-07 07:24] LABS: ALB/GLOB RATIO 1.2 (1.0-2.1); ALKALINE PHOSPHATASE 44 U/L (38-126); AST/SGOT 23 U/L (17-59); BILIRUBIN,TOTAL 0.7 mg/dL (0.2-1.3); CARBON DIOXIDE 27 mmol/L (22-30); GFR AFRICAN-AMERICAN > 60; TOTAL PROTEIN 5.6 g/dL (6.3-8.3)
[2017-01-07 07:25] LABS: ALT/SGPT 24 U/L (21-72); BLOOD UREA NITROGEN 8 mg/dL (9-20); CALCIUM 7.9 mg/dl (8.6-10.4); GLUCOSE,RANDOM 93 mg/dL (75-110); MAGNESIUM 2.3 mg/dL (1.6-2.3); PHOSPHOROUS 3.7 mg/dL (2.5-4.5)
--- NOTE | 2017-01-07 07:55 | CP.PCM.PN ---
<KaufmanKeturah chiBianca - Last Filed: 01/07/17 07:52> Subjective - Date & Time of Evaluation Date of Evaluation: 01/07/17 Time of Evaluation: 00:35 - Subjective Subjective: PGY-1 Medicine note- Dr. Salinas's service Patient seen and examined at bedside this morning. Patient denies headache, blurry vision, chest pain, shortness of breath, abdominal pain. Objective - Vital Signs/Intake and Output Vital Signs (last 24 hours): Temp Pulse Resp BP Pulse Ox 98.1 F 60 20 99/62 L 96 01/06/17 23:34 01/06/17 23:34 01/06/17 23:34 01/06/17 23:34 01/06/17 23:34 - Medications Medications: Current Medications Sodium Chloride (Sodium Chloride 0.9%) 1,000 mls @ 125 mls/hr IV .Q8H [facility] Last Admin: 01/07/17 06:26 Dose: 125 mls/hr Pantoprazole Sodium (Protonix Ec Tab) 40 mg PO DAILY [facility] Last Admin: 01/06/17 14:56 Dose: 40 mg - Labs Labs: 01/07/17 07:01 01/07/17 07:01 PT 10.9 SECONDS (9.7-12.2) 01/05/17 06:27 INR 1.0 01/05/17 06:27 APTT 31 SECONDS (21-34) 01/05/17 06:27 - Constitutional Appears: No Acute Distress - Respiratory Exam Respiratory Exam: Clear to Ausculation Bilateral, NORMAL BREATHING PATTERN - Cardiovascular Exam Cardiovascular Exam: REGULAR RHYTHM, +S1, +S2 - GI/Abdominal Exam GI & Abdominal Exam: Soft, Normal Bowel Sounds. absent: Tenderness - Psychiatric Exam Psychiatric exam: Normal Affect, Normal Mood Assessment and Plan - Assessment and Plan (Free Text) Plan: 1.) Lower GI Bleed * Consult: Dr. Harper (GI) on board-->help appreciated * Colonoscopy performed by Dr. Harper on 01/06 - no fresh blood or clots, rectal polyp removed, scattered diverticulosis L>R, internal hemorrhoids without bleeding. rule out small bowel vs ugi source * Patient transfused 2 units given, HgB increased to 10.1 * Monitor Hgg * H/H 10.1/29.6 * If HgB drops again may need repeat infusion and possible endoscopy per GI * Protonix 40mg IV Q 12hours * advance diet as tolerated 2.) EKG Abnormality T Wave Inversions Risk factors: smoker, drinking, age, male; no known cardiac hx, no family hx Cardiology (Dr. Glynn) on case Echo:Left ventricular systolic function is normal. Normal LV segmental wall motion. Transmitral doppler flow pattern is Grade 1- abnormal relaxation pattern. Normal left atrial pressure by tissue doppler. right ventricular systolic function is normal. left atrium is mildly dilated. no significant valvular abnormality. no pericardial effusion. HgA1C:5.6 TSH:1.81 proBNP:160 PORTER x2 negative 1 PORTER pending FLP- triglycerides:178, cholesterol:144, LDL:111, HDL:21 compared prior EKG, stress test normal in 2014 Dr. Glynn consulted, help appreciated. As per Dr. Glynn patient had cardiac clearance for colonoscopy. 3.) High Cholesterol Fasting lipid panel, see above 4.) Prophylaxis No VTE prophylaxis Protonix 40 mg IV Q 12 hours SCDs Daughter contact - Baylee #[phone] <Krysta Salinas V - Last Filed: 01/08/17 17:23> Objective - Vital Signs/Intake and Output Vital Signs (last 24 hours): Temp Pulse Resp BP Pulse Ox 97.5 F L 61 20 106/61 96 01/08/17 15:00 01/08/17 15:00 01/08/17 15:00 01/08/17 15:00 01/08/17 15:00 Intake and Output: 01/08/17 01/08/17 06:59 18:59 Intake Total 1979 1000 Balance 1979 1000 - Medications Medications: Current Medications Sodium Chloride (Sodium Chloride 0.9%) 1,000 mls @ 125 mls/hr IV .Q8H [facility] Last Admin: 01/08/17 15:44 Dose: Not Given Pantoprazole Sodium (Protonix Ec Tab) 40 mg PO DAILY [facility] Last Admin: 01/08/17 09:58 Dose: 40 mg - Labs Labs: 01/08/17 08:20 01/08/17 08:20 PT 10.9 SECONDS (9.7-12.2) 01/05/17 06:27 INR 1.0 01/05/17 06:27 APTT 31 SECONDS (21-34) 01/05/17 06:27 Assessment and Plan (1) Lower GI bleed Status: Acute (2) Abnormal EKG Status: Acute (3) Anemia due to blood loss Status: Acute (4) Prophylactic measure Status: Acute Attending/Attestation - Attestation I have personally seen and examined this patient.: Yes I have fully participated in the care of the patient.: Yes I have reviewed all pertinent clinical information, including history, physical exam and plan: Yes Notes (Text): This is a late computer entry for 01/07/17. Patient seen, examined and case discussed with day-time resident. Patient seen in the afternoon with family present at bedside. Patient reporting one episode of rectal bleeding since post-colonoscopy. Patient denies other acute complaints; would like to know when is going home. Explained to the patient would like to monitor H/H to see if improves or not given he may need EGD. Patient's hemoglobin at 10.1 (on admission was 12) Assessment/Plan 1) GI Bleed * Consult: Dr. Harper (GI) on board-->help appreciated * Patient is consented for blood transfusion, witnessed by myself, and ED nurse , Alirio on admission * Protonix 40mg PO daily * CT Abdomen/Pelvis (01/05/17): no acute abnormality, Scattered colonic diverticulae without evidence of diverticulitis. Elevated right hemidiaphgram may reflect diaphragmamtic paralysis or eventration. Scattered colonic diverticulae. * Colonoscopy (01/06/17): one 6mm polyp in the rectum. resected and retrieved. Diverticulosis in the sigmoid colon, in descending colon and ascending colon, non-bleeding internal hemorrhoids-->No aspirin ibuprofen, naprozen, or NSAIDs for 10 days after polyp removal, possible EGD if patient remains in hospital, Advised Protonix 40mg PO daily * Hgb: 10.1 s/p colonoscopy * IV fluids * c/w monitor H/H 2) Abnormal EKG * Consult: Dr. Glynn (cardiology) on the case-->help appreciated * EKG: T wave inversion on admission. * Echo: left ventricular systolic function is normal. Normal LV segmental wall motion. Transmitral doppler flow pattern is Grade I abnormal relaxation pattern. Normal left atrial pressure by tissue doppler, right ventricular systolic function is normal. left atrium is mildly dilated. no significant valvular abnormality. No pericardial effusion * Hgba1c: 5.6 * TSH: 1.81 * Probnp: 160 * PORTER X3: negative * T, Cholestrol: 144, LDL: 111: HDL: 21 * Stress test in 2013: normal * Per cardiology: low risk for cardiac symptoms for colonoscopy under conscious sedation prior to colonoscopy 3) Arthritis history * hold NSAIDs 4) Prophylactic measure * Contraindications to VTE ppx secondary to lower GI bleed * Protonix 40mg PO daily * Diet per GI * IV: 125 cc/hr
[2017-01-07] MEDS: Pantoprazole 40 mg EC Tab PO SCH (09:41)
--- NOTE | 2017-01-07 10:31 | CP.PCM.PN ---
Subjective - Date & Time of Evaluation Date of Evaluation: 01/07/17 Time of Evaluation: 10:28 - Subjective Subjective: Covering Dr Harper CC: follow up GI bleed Colonoscopy showed Diverticulosis and dark colored stool throughout colon. Hgb stable Denies abdominal pain, dyspnea. Objective - Vital Signs/Intake and Output Vital Signs (last 24 hours): Temp Pulse Resp BP Pulse Ox 98.0 F 62 18 102/66 99 01/07/17 07:07 01/07/17 07:07 01/07/17 07:07 01/07/17 07:07 01/07/17 07:07 - Medications Medications: Current Medications Sodium Chloride (Sodium Chloride 0.9%) 1,000 mls @ 125 mls/hr IV .Q8H [facility] Last Admin: 01/07/17 07:45 Dose: Not Given Pantoprazole Sodium (Protonix Ec Tab) 40 mg PO DAILY [facility] Last Admin: 01/07/17 09:41 Dose: 40 mg - Labs Labs: 01/07/17 07:01 01/07/17 07:01 PT 10.9 SECONDS (9.7-12.2) 01/05/17 06:27 INR 1.0 01/05/17 06:27 APTT 31 SECONDS (21-34) 01/05/17 06:27 - Constitutional Appears: Well, No Acute Distress - Respiratory Exam Respiratory Exam: Clear to Ausculation Bilateral - Cardiovascular Exam Cardiovascular Exam: REGULAR RHYTHM - GI/Abdominal Exam GI & Abdominal Exam: Soft. absent: Tenderness Assessment and Plan (1) Anemia due to blood loss Assessment & Plan: Bleeding now stable, possibly from Diverticulosis. Rec: Protonix. Elective EGD by Dr Harper as outpatient. Can be done Monday if patient remains in hospital. Status: Acute
--- NOTE | 2017-01-07 22:23 | CARD ---
APPROVED REPORT EKG Measurement Heart [id number] <Conclusion> Normal sinus rhythm Marked T wave abnormality, consider anterolateral ischemia Abnormal ECG
[2017-01-08] MEDS: Sodium Chloride 0.9% 1,000 ML IV SCH ×5 (06:18→22:48)
[2017-01-08 08:36] LABS: BASO % 0.5 % (0.0-2.0); EOS # 0.1 K/uL (0.0-0.7); EOS % 1.8 % (0.0-4.0); HEMATOCRIT 28.8 % (35.0-51.0); LYMPH # 1.8 K/uL (1.0-4.3); LYMPH % 39.1 % (20.0-40.0); MEAN CELL VOLUME 91.6 fL (80.0-94.0); MEAN CORPUSCULAR HEMOGLOBIN 31.4 pg (27.0-31.0); MEAN CORPUSCULAR HGB CONC 34.3 g/dL (33.0-37.0); MEAN PLATELET VOLUME 7.7 fL (7.2-11.7); MONO # 0.3 K/uL (0.0-0.8); MONO % 6.3 % (0.0-10.0); NRBC % 0.1 % (0.0-2.0); RED CELL DISTRIBUTION WIDTH 13.4 % (11.5-14.5); WHITE BLOOD COUNT 4.6 K/uL (4.8-10.8)
[2017-01-08 08:48] LABS: CHLORIDE 108 mmol/L (98-107)
[2017-01-08 08:49] LABS: POTASSIUM 3.8 mmol/L (3.6-5.2); SODIUM 141 mmol/L (132-148)
[2017-01-08 08:51] LABS: ALB/GLOB RATIO 1.3 (1.0-2.1); ALKALINE PHOSPHATASE 46 U/L (38-126); ALT/SGPT 22 U/L (21-72); AST/SGOT 21 U/L (17-59); BILIRUBIN,TOTAL 0.6 mg/dL (0.2-1.3); BLOOD UREA NITROGEN 10 mg/dL (9-20); CARBON DIOXIDE 27 mmol/L (22-30); GFR AFRICAN-AMERICAN > 60; GLUCOSE,RANDOM 94 mg/dL (75-110); TOTAL PROTEIN 5.7 g/dL (6.3-8.3)
[2017-01-08 08:52] LABS: CALCIUM 8.2 mg/dl (8.6-10.4); MAGNESIUM 2.1 mg/dL (1.6-2.3); PHOSPHOROUS 3.4 mg/dL (2.5-4.5)
--- NOTE | 2017-01-08 08:59 | CP.PCM.PN ---
Subjective - Date & Time of Evaluation Date of Evaluation: 01/08/17 Time of Evaluation: 08:58 - Subjective Subjective: Covering dr Harper CC: Follow up GI Bleed Stable Hgb No abdominal pain or reported bleeding Objective - Vital Signs/Intake and Output Vital Signs (last 24 hours): Temp Pulse Resp BP Pulse Ox 98.3 F 60 20 103/62 95 01/07/17 23:27 01/07/17 23:27 01/07/17 23:27 01/07/17 23:27 01/07/17 23:27 Intake and Output: 01/08/17 01/08/17 06:59 18:59 Intake Total 1979 Balance 1979 - Medications Medications: Current Medications Sodium Chloride (Sodium Chloride 0.9%) 1,000 mls @ 125 mls/hr IV .Q8H [facility] Last Admin: 01/08/17 06:18 Dose: 125 mls/hr Pantoprazole Sodium (Protonix Ec Tab) 40 mg PO DAILY [facility] Last Admin: 01/07/17 09:41 Dose: 40 mg - Labs Labs: 01/08/17 08:20 01/08/17 08:20 PT 10.9 SECONDS (9.7-12.2) 01/05/17 06:27 INR 1.0 01/05/17 06:27 APTT 31 SECONDS (21-34) 01/05/17 06:27 - Constitutional Appears: Well - Head Exam Head Exam: NORMOCEPHALIC - Respiratory Exam Respiratory Exam: Clear to Ausculation Bilateral - Cardiovascular Exam Cardiovascular Exam: REGULAR RHYTHM - GI/Abdominal Exam GI & Abdominal Exam: Soft. absent: Tenderness Assessment and Plan (1) Anemia due to blood loss Assessment & Plan: Stable rec: PPI. EGD either as outpatient or in AM Status: Acute
[2017-01-08] MEDS: Pantoprazole 40 mg EC Tab PO SCH (09:58)
--- NOTE | 2017-01-08 10:41 | CP.PCM.PN ---
Subjective - Date & Time of Evaluation Date of Evaluation: 01/08/17 Time of Evaluation: 08:35 - Subjective Subjective: Medical Attending Note Follow-up: GI bleed Patient seen and examined. Patient reports he has not had a bowel movement this morning. Patient reports yesterday 1 episode of small rectal bleeding with black stool. Denies headache, denies chest pain, denies cough, denies abdominal pain, denies nausea, denies vomitting, denies dysuria, pending bowel movement today. Objective - Vital Signs/Intake and Output Vital Signs (last 24 hours): Temp Pulse Resp BP Pulse Ox 98.3 F 60 20 103/62 95 01/07/17 23:27 01/07/17 23:27 01/07/17 23:27 01/07/17 23:27 01/07/17 23:27 Intake and Output: 01/08/17 01/08/17 06:59 18:59 Intake Total 1979 Balance 1979 - Medications Medications: Current Medications Sodium Chloride (Sodium Chloride 0.9%) 1,000 mls @ 125 mls/hr IV .Q8H [facility] Last Admin: 01/08/17 06:18 Dose: 125 mls/hr Pantoprazole Sodium (Protonix Ec Tab) 40 mg PO DAILY [facility] Last Admin: 01/08/17 09:58 Dose: 40 mg - Labs Labs: 01/08/17 08:20 01/08/17 08:20 PT 10.9 SECONDS (9.7-12.2) 01/05/17 06:27 INR 1.0 01/05/17 06:27 APTT 31 SECONDS (21-34) 01/05/17 06:27 - Constitutional Appears: Non-toxic, No Acute Distress - Head Exam Head Exam: NORMAL INSPECTION - Eye Exam Eye Exam: EOMI - ENT Exam ENT Exam: Mucous Membranes Moist - Respiratory Exam Respiratory Exam: Clear to Ausculation Bilateral, NORMAL BREATHING PATTERN. absent: Rales, Rhonchi, Wheezes - Cardiovascular Exam Cardiovascular Exam: REGULAR RHYTHM, +S1, +S2 - GI/Abdominal Exam GI & Abdominal Exam: Soft, Normal Bowel Sounds. absent: Distended, Firm, Guarding, Rigid, Tenderness, Rebound - Extremities Exam Extremities Exam: Normal Capillary Refill. absent: Pedal Edema, Tenderness - Back Exam Back Exam: absent: paraspinal tenderness, rash noted - Neurological Exam Neurological Exam: Alert, Awake, Oriented x3 - Psychiatric Exam Psychiatric exam: Normal Affect, Normal Mood - Skin Skin Exam: Dry, Normal Color, Warm Assessment and Plan (1) Lower GI bleed Status: Acute (2) Abnormal EKG Status: Acute (3) Anemia due to blood loss Status: Acute (4) Prophylactic measure Status: Acute - Assessment and Plan (Free Text) Assessment: 1) GI Bleed * Consult: Dr. Harper (GI) on board-->help appreciated * Patient is consented for blood transfusion, witnessed by myself, and ED nurse , Alirio on admission * Protonix 40mg PO daily * NPO after midnight-->endoscopy * CT Abdomen/Pelvis (01/05/17): no acute abnormality, Scattered colonic diverticulae without evidence of diverticulitis. Elevated right hemidiaphgram may reflect diaphragmamtic paralysis or eventration. Scattered colonic diverticulae. * Colonoscopy (01/06/17): one 6mm polyp in the rectum. resected and retrieved. Diverticulosis in the sigmoid colon, in descending colon and ascending colon, non-bleeding internal hemorrhoids-->No aspirin ibuprofen, naprozen, or NSAIDs for 10 days after polyp removal, possible EGD if patient remains in hospital, Advised Protonix 40mg PO daily * Hgb: 9.9; note on admission Hgb: 12 * NS 125 cc/hr 2) Abnormal EKG * Consult: Dr. Glynn (cardiology) on the case-->help appreciated * EKG: T wave inversion on admission. * Echo: left ventricular systolic function is normal. Normal LV segmental wall motion. Transmitral doppler flow pattern is Grade I abnormal relaxation pattern. Normal left atrial pressure by tissue doppler, right ventricular systolic function is normal. left atrium is mildly dilated. no significant valvular abnormality. No pericardial effusion * Hgba1c: 5.6 * TSH: 1.81 * Probnp: 160 * PORTER X3: negative * T, Cholestrol: 144, LDL: 111: HDL: 21 * Stress test in 2013: normal * Per cardiology: low risk for cardiac symptoms for colonoscopy under conscious sedation prior to colonoscopy 3) Arthritis history * hold NSAIDs 4) Prophylactic measure * Contraindications to VTE ppx secondary to lower GI bleed * Protonix 40mg PO daily * NPO after midnight * IV: 125 cc/hr
[2017-01-09] MEDS: Sodium Chloride 0.9% 1,000 ML IV SCH (06:32)
[2017-01-09 06:48] LABS: EOS # 0.1 K/uL (0.0-0.7); EOS % 2.3 % (0.0-4.0); HEMATOCRIT 28.4 % (35.0-51.0); LYMPH # 1.8 K/uL (1.0-4.3); LYMPH % 36.8 % (20.0-40.0); MEAN CELL VOLUME 92.2 fL (80.0-94.0); MEAN CORPUSCULAR HEMOGLOBIN 31.4 pg (27.0-31.0); MEAN PLATELET VOLUME 7.5 fL (7.2-11.7); MONO # 0.4 K/uL (0.0-0.8); MONO % 7.1 % (0.0-10.0); RED CELL DISTRIBUTION WIDTH 13.3 % (11.5-14.5); WHITE BLOOD COUNT 4.9 K/uL (4.8-10.8)
[2017-01-09 07:02] LABS: CHLORIDE 103 mmol/L (98-107)
[2017-01-09 07:03] LABS: POTASSIUM 3.9 mmol/L (3.6-5.2); SODIUM 136 mmol/L (132-148)
[2017-01-09 07:05] LABS: ALB/GLOB RATIO 1.2 (1.0-2.1); ALKALINE PHOSPHATASE 46 U/L (38-126); AST/SGOT 26 U/L (17-59); BILIRUBIN,TOTAL 0.4 mg/dL (0.2-1.3); BLOOD UREA NITROGEN 12 mg/dL (9-20); CARBON DIOXIDE 25 mmol/L (22-30); GFR AFRICAN-AMERICAN > 60; TOTAL PROTEIN 5.8 g/dL (6.3-8.3)
[2017-01-09 07:06] LABS: ALT/SGPT 29 U/L (21-72); CALCIUM 8.2 mg/dl (8.6-10.4); GLUCOSE,RANDOM 94 mg/dL (75-110); MAGNESIUM 1.8 mg/dL (1.6-2.3); PHOSPHOROUS 3.6 mg/dL (2.5-4.5)
[2017-01-09] MEDS ORDERED: Propofol 10 mg/ml Inj (20 ML) ONE (07:54)
[2017-01-09] MEDS ORDERED: Lidocaine Hydrochloride 5 ML INJ ONE (07:54)
--- NOTE | 2017-01-09 08:04 | CP.PCM.PN ---
Subjective - Date & Time of Evaluation Date of Evaluation: 01/09/17 Time of Evaluation: 08:02 - Subjective Subjective: EGD: Mild antral gastritis, no ulcer or bleeding GERD into lower esophagus without erosive changes normal duodenum through C-loop to third portion of duodenum Rec/ Cont PPI Stable for discharge from GI point of view Consider Pillcam as outpatient via [facility] GI clinic to evaluate small bowel. Objective - Vital Signs/Intake and Output Vital Signs (last 24 hours): Temp Pulse Resp BP Pulse Ox 97.9 F 59 L 20 110/65 97 01/08/17 23:25 01/08/17 23:25 01/08/17 23:25 01/08/17 23:25 01/08/17 23:25 Intake and Output: 01/09/17 01/09/17 06:59 18:59 Intake Total 2160 Balance 2160 - Medications Medications: Current Medications Sodium Chloride (Sodium Chloride 0.9%) 1,000 mls @ 125 mls/hr IV .Q8H [facility] Last Admin: 01/09/17 06:32 Dose: 125 mls/hr Pantoprazole Sodium (Protonix Ec Tab) 40 mg PO DAILY [facility] Last Admin: 01/08/17 09:58 Dose: 40 mg - Labs Labs: 01/09/17 06:35 01/09/17 06:35 PT 10.9 SECONDS (9.7-12.2) 01/05/17 06:27 INR 1.0 01/05/17 06:27 APTT 31 SECONDS (21-34) 01/05/17 06:27 Assessment and Plan (1) Anemia due to blood loss Status: Acute (2) Lower abdominal pain Status: Acute (3) Lower GI bleed Status: Acute (4) Abnormal EKG Status: Acute
[2017-01-09 09:06] VITALS: BP 124/76; PULSE 61; RESP 20; TEMP 97.6; O2SAT 98
[2017-01-09] MEDS: Pantoprazole 40 mg EC Tab PO SCH (09:35)
--- NOTE | 2017-01-09 15:51 | CP.PCM.DIS ---
Provider - Provider Date of Admission: 01/05/17 13:11 Attending physician: Krysta Salinas DO Time Spent in preparation of Discharge (in minutes): 40 Diagnosis - Discharge Diagnosis (1) Abnormal EKG Status: Resolved Priority: High Comment: See hospital summary for further details. (2) Lower GI bleed Status: Resolved Priority: High Comment: See hospital summary for further details. Hospital Course - Lab Results Lab Results: Most Recent Lab Values WBC 4.9 K/uL (4.8-10.8) 01/09/17 06:35 RBC 3.08 Mil/uL (4.40-5.90) L 01/09/17 06:35 Hgb 9.7 g/dL (12.0-18.0) L 01/09/17 06:35 Hct 28.4 % (35.0-51.0) L 01/09/17 06:35 MCV 92.2 fL (80.0-94.0) 01/09/17 06:35 MCH 31.4 pg (27.0-31.0) H 01/09/17 06:35 MCHC 34.0 g/dL (33.0-37.0) 01/09/17 06:35 RDW 13.3 % (11.5-14.5) 01/09/17 06:35 Plt Count 243 K/uL (130-400) 01/09/17 06:35 MPV 7.5 fL (7.2-11.7) 01/09/17 06:35 Neut % (Auto) 52.8 % (50.0-75.0) 01/09/17 06:35 Lymph % (Auto) 36.8 % (20.0-40.0) 01/09/17 06:35 [place] % (Auto) 7.1 % (0.0-10.0) 01/09/17 06:35 Eos % (Auto) 2.3 % (0.0-4.0) 01/09/17 06:35 Baso % (Auto) 1.0 % (0.0-2.0) 01/09/17 06:35 Neut # 2.6 K/uL (1.8-7.0) 01/09/17 06:35 Lymph # 1.8 K/uL (1.0-4.3) 01/09/17 06:35 [place] # 0.4 K/uL (0.0-0.8) 01/09/17 06:35 Eos # 0.1 K/uL (0.0-0.7) 01/09/17 06:35 Baso # 0.0 K/uL (0.0-0.2) 01/09/17 06:35 PT 10.9 SECONDS (9.7-12.2) 01/05/17 06:27 INR 1.0 01/05/17 06:27 APTT 31 SECONDS (21-34) 01/05/17 06:27 Sodium 136 mmol/L (132-148) 01/09/17 06:35 Potassium 3.9 mmol/L (3.6-5.2) 01/09/17 06:35 Chloride 103 mmol/L (98-107) 01/09/17 06:35 Carbon Dioxide 25 mmol/L (22-30) 01/09/17 06:35 Anion Gap 12 (10-20) 01/09/17 06:35 BUN 12 mg/dL (9-20) 01/09/17 06:35 Creatinine 0.7 MG/DL (0.8-1.5) L 01/09/17 06:35 Est GFR ( Amer) > 60 01/09/17 06:35 Est GFR (Non-Af Amer) > 60 01/09/17 06:35 Random Glucose 94 mg/dL (75-110) 01/09/17 06:35 Hemoglobin A1c 5.6 % (4.2-6.5) 01/05/17 13:18 Calcium 8.2 mg/dl (8.6-10.4) L 01/09/17 06:35 Phosphorus 3.6 mg/dL (2.5-4.5) 01/09/17 06:35 Magnesium 1.8 mg/dL (1.6-2.3) 01/09/17 06:35 Total Bilirubin 0.4 mg/dL (0.2-1.3) 01/09/17 06:35 AST 26 U/L (17-59) 01/09/17 06:35 ALT 29 U/L (21-72) 01/09/17 06:35 Alkaline Phosphatase 46 U/L (38-126) 01/09/17 06:35 Total Creatine Kinase 71 U/L (55-170) 01/06/17 00:06 CK-MB (Mass) 1.16 ng/mL (0.0-3.38) 01/06/17 00:06 Troponin I, Quant < 0.0120 ng/mL (0.00-0.120) 01/06/17 00:06 NT-Pro-B Natriuret Pep 160 pg/mL (0-900) 01/05/17 13:18 Total Protein 5.8 g/dL (6.3-8.3) L 01/09/17 06:35 Albumin 3.2 g/dL (3.5-5.0) L 01/09/17 06:35 Globulin 2.6 gm/dL (2.2-3.9) 01/09/17 06:35 Albumin/Globulin Ratio 1.2 (1.0-2.1) 01/09/17 06:35 Triglycerides 178 mg/dL (0-149) H D 01/05/17 13:18 Cholesterol 144 mg/dL (0-199) 01/05/17 13:18 LDL Cholesterol Direct 111 mg/dL (0-129) 01/05/17 13:18 HDL Cholesterol 22 mg/dL (30-70) L 01/05/17 13:18 TSH 3rd Generation 1.81 mIU/L (0.46-4.68) 01/05/17 13:18 Urine Color Straw (YELLOW) 01/05/17 09:12 Urine Clarity Clear (Clear) 01/05/17 09:12 Urine pH 5.0 (5.0-8.0) 01/05/17 09:12 Ur Specific [place] 1.043 (1.003-1.030) H 01/05/17 09:12 Urine Protein Negative mg/dL (NEGATIVE) 01/05/17 09:12 Urine Glucose (UA) Normal mg/dL (Normal) 01/05/17 09:12 Urine Ketones Negative mg/dL (NEGATIVE) 01/05/17 09:12 Urine Blood Negative (NEGATIVE) 01/05/17 09:12 Urine Nitrate Negative (NEGATIVE) 01/05/17 09:12 Urine Bilirubin Negative (NEGATIVE) 01/05/17 09:12 Urine Urobilinogen Normal mg/dL (0.2-1.0) 01/05/17 09:12 Ur Leukocyte Esterase Neg Radha/uL (Negative) 01/05/17 09:12 Urine WBC (Auto) < 1 /hpf (0-5) 01/05/17 09:12 Urine RBC (Auto) < 1 /hpf (0-3) 01/05/17 09:12 Stool Occult Blood Positive (NEGATIVE) H 01/05/17 06:14 Blood Type O POSITIVE 01/05/17 06:33 Antibody Screen Negative 01/05/17 06:33 - Hospital Course Hospital Course: Patient is a 61 y/o male with PMH of GERD and hyperlipidemia who presents to the ER for bright red blood in stool. Patient woke up for work at 4am and felt he was straining as he went to the bathroom. Patient saw the toilet bowl filled with blood. This occurred two more times. Patient had no abdominal pain. In ER patient had another witnessed bloody BM. Patient denies any new foods. He has had no problems with constipation or hemorrhoids in the past. In ED patient's ekg found to have t wave inversions and echo ordered. Patient denies headache, shortness of breath, chest pain, abdominal pain. Patient state he feels slightly light headed when he gets up from bed. Patient was admitted to telemetry for monitoring. Cardiology (Dr. Glynn) was consulted on the case. Per cardiac workup, patient completed: - PORTER negative X3 - EKG: T wave inversion on admission - Echo:Left ventricular systolic function is normal. Normal LV segmental wall motion. Transmitral doppler flow pattern is Grade 1- abnormal relaxation pattern. Normal left atrial pressure by tissue doppler. right ventricular systolic function is normal. left atrium is mildly dilated. no significant valvular abnormality. no pericardial effusion. GI workup (Dr. Harper) was consulted on the case. Per GI workup, patient completed: - Received 2 units of packed red blood cells on admission - CT Abdomen/Pelvis (01/05/17): no acute abnormality, Scattered colonic diverticulae without evidence of diverticulitis. Elevated right hemidiaphgram may reflect diaphragmamtic paralysis or eventration. Scattered colonic diverticulae. * Colonoscopy (01/06/17): one 6mm polyp in the rectum. resected and retrieved. Diverticulosis in the sigmoid colon, in descending colon and ascending colon, non-bleeding internal hemorrhoids-->No aspirin ibuprofen, naprozen, or NSAIDs for 10 days after polyp removal, possible EGD if patient remains in hospital, Advised Protonix 40mg PO daily * EGD (01/09/17): Mild antral gastritis, no ulcer or bleeding. GERD into lower esophagus without erosive changes. Normal duodenum through C-loop to third portion of duodenum Patient stable for discharge per Dr. Marrero. Patient should not resume all home medications, patient should hold Aspirin until he follows up with Dr. Ellis Patient should make an appointment and follow up with PMD, Dr. Ellis within one week for. Patient will need outpatient GI follow up. Patient should return to ED immediately if symptoms return or worsen. Instructions discussed with patient who understood and agreed. This is a summary of patient's hospitalization. Please see EMR for further details. Discharge Exam - Head Exam Head Exam: NORMAL INSPECTION, NORMOCEPHALIC - Eye Exam Eye Exam: EOMI, Normal appearance, PERRL Pupil Exam: NORMAL ACCOMODATION - ENT Exam ENT Exam: Mucous Membranes Moist - Respiratory Exam Respiratory Exam: Clear to PA & Lateral, NORMAL BREATHING PATTERN. absent: Rales, Rhonchi, Wheezes, Respiratory Distress, Stridor - Cardiovascular Exam Cardiovascular Exam: REGULAR RHYTHM, RRR, +S1, +S2. absent: JVD - GI/Abdominal Exam GI & Abdominal Exam: Normal Bowel Sounds, Soft. absent: Guarding, Tenderness - Extremities Exam Extremities exam: normal inspection, pedal pulses present - Neurological Exam Neurological exam: Alert, Oriented x3 - Psychiatric Exam Psychiatric exam: Normal Mood - Skin Skin Exam: Dry, Intact, Normal Color, Warm Discharge Plan - Discharge Medications Prescriptions: Pantoprazole [Protonix EC Tab] 40 mg PO DAILY #30 ect - Follow Up Plan Condition: STABLE Disposition: HOME/ ROUTINE Instructions: Pantoprazole (By mouth), Gastrointestinal Bleeding (DC), Cholesterol and Your Health (GEN), Upper Endoscopy (GEN) Additional Instructions: Patient stable for discharge per Dr. Marrero. Patient should not resume all home medications, patient should hold Aspirin until he follows up with Dr. Ellis Patient should make an appointment and follow up with PMD, Dr. Ellis within one week for. Patient will need outpatient GI follow up. Patient should return to ED immediately if symptoms return or worsen. Instructions discussed with patient who understood and agreed. Referrals: Nestor Ellis MD [Staff Provider] - Kiet Harper MD [Staff Provider] -
== END 2017-01-09 18:20 | disposition home or self-care (01) | DRG 174 ==
LOC: C.ER 05:15 → C.9E 11:27 → C.5T 12:57 → OBSVTOIN 13:11 → C.5T 01-06 08:03
PROVIDERS: ADMIT Hospitalist; ATTEND Internal Medicine
PROC: 30233N1 Transfusion of Nonautologous Red Blood Cells into Peripheral Vein, Percutaneous Approach (ICD-10-PCS; 2017-01-05)
PROC: 0DBP8ZZ Excision of Rectum, Via Natural or Artificial Opening Endoscopic (ICD-10-PCS; principal; 2017-01-06 13:16)
PROC: 0DB68ZX Excision of Stomach, Via Natural or Artificial Opening Endoscopic, Diagnostic (ICD-10-PCS; 2017-01-09)
DX: K57.31 Diverticulosis of large intestine without perforation or abscess with bleeding (principal); D62 Acute posthemorrhagic anemia; E78.5 Hyperlipidemia, unspecified; K21.9 Gastro-esophageal reflux disease without esophagitis; K29.50 Unspecified chronic gastritis without bleeding; K62.1 Rectal polyp; K64.1 Second degree hemorrhoids; I25.10 Atherosclerotic heart disease of native coronary artery without angina pectoris; E78.00 Pure hypercholesterolemia, unspecified; F17.200 Nicotine dependence, unspecified, uncomplicated; K29.60 Other gastritis without bleeding; M19.90 Unspecified osteoarthritis, unspecified site; Z80.42 Family history of malignant neoplasm of prostate; Z83.3 Family history of diabetes mellitus

== ENCOUNTER 2017-11-12 16:59 | Emergency (ER) | payer MEDICAID ==
[2017-11-12 17:14] VITALS: O2SAT 97
[2017-11-12] MEDS ORDERED: Tetanus/Diphtheria Toxoids 0.5 ml Syringe IM ONE ×2 (17:23→18:12)
[2017-11-12] MEDS ORDERED: Lidocaine 2% Inj (20ml) INFIL ONE (17:26)
[2017-11-12] MEDS ORDERED: Lidocaine 2% MPF (5 ml) Inj ONE (17:40)
[2017-11-12] MEDS ORDERED: Bacitracin 500 Units/gm Oint Foilpak UD ONE (18:02)
[2017-11-12] MEDS ORDERED: Tmp-Smz 800 mg-160 mg DS Tab PO STA (18:08)
--- NOTE | 2017-11-12 18:10 | C.PDOC ---
History Of Present Illness Patient presentsto ED c/o laceration of left finger sustained approx 1 hr [employer]. Patient states he cut himself while using his own pocket knife. He denies other injuries, sensory changes, inability to move thumb. Patient is unsure of his tetanus vaccination status. Time Seen by Provider: 11/12/17 17:10 Chief Complaint (Nursing): Abnormal Skin Integrity History Per: Patient History/Exam Limitations: no limitations Onset/Duration Of Symptoms: Hrs Current Symptoms Are (Timing): Still Present Location Of Injury: Left: Hand (left thumb palmar aspect ) Past Medical History Reviewed: Historical Data, Nursing Documentation, Vital Signs Vital Signs: Last Vital Signs Temp 98 F 11/12/17 17:11 Pulse 59 L 11/12/17 17:11 Resp 20 11/12/17 17:11 BP 130/80 11/12/17 17:11 Pulse Ox 97 11/12/17 18:12 - Medical History PMH: No Chronic Diseases - [facility] Procedures EXCISION OF RECTUM, ENDO (01/05/17) EXCISION OF STOMACH, ENDO, DIAGN (01/05/17) TRANSFUSE NONAUT RED BLOOD CELLS IN PERIPH VEIN, PERC (01/05/17) Family History: States: No Known Family Hx - Social History Hx Tobacco Use: Yes Hx Alcohol Use: No Hx Substance Use: No - Immunization History Hx Tetanus Toxoid Vaccination: No Hx Influenza Vaccination: Yes Hx Pneumococcal Vaccination: No Review Of Systems Constitutional: Negative for: Fever, Chills Musculoskeletal: Positive for: Hand Pain (left thumb pain, laceration) Skin: Negative for: Rash Neurological: Negative for: Weakness, Numbness Physical Exam - Physical Exam Appears: Well, Non-toxic, No Acute Distress Skin: Warm, Dry, Other (see extremity exam ) Head: Normacephalic Oral Mucosa: Moist Cardiovascular: Rhythm Regular Respiratory: Normal Breath Sounds, No Rales, No Rhonchi, No Wheezing Extremity: Normal ROM (at left MCP and IP joints ), Capillary Refill (< 2 sec all digits ), No Deformity, No Swelling, Other (left thumb palmar aspect - approx 2cm linear laceration at proximal thumb, no involvement of tendon) Pulses: Left Radial: Normal, Right Radial: Normal Neurological/Psych: Oriented x3, Normal Sensation (normal sensation left thumb/ hand) ED Course And Treatment O2 Sat by Pulse Oximetry: 97 (RA) Pulse Ox Interpretation: Normal Progress Note: Patient given IM tetanus vaccination, PO Bactrim and Keflex. Laceration repair done by me, patient tolerated well. Bacitracin and gauze dressing + thumg splint also applied by me, patient tolerated well. Patient given Rxs for Naprosyn, Bactrim and Keflex. He was instructed to follow up with his PMD in 1-2 days, and to have sutures removed in 7-10 days. He understands he should return to ED if he has any concerning symptoms such as redness, pain, swelling, fever, discharge, etc. Reevaluation Time: 18:15 Reassessment Condition: Improved Laceration - Laceration Repair left thumb Wound Length (In cm): 2 Description Of Wound: Linear Wound Cleansed With: Betadine, Sterile Saline Anesthesia: Lidocaine 2% (approx 4ml local infiltration) Wound Examination: Irrigated With Saline, No FB With Wound Exploration, No Tendon Injury With Wound Exploration Wound Closure: Suture Suture Technique And Material Used: Interrupted, Nylon (5 dermal 2.0 ethilon ), Vicryl (1 subcutaneous vicryl 3.0) Wound Complexity: Intermediate Disposition Counseled Patient/Family Regarding: Diagnosis, Need For Followup - Disposition Referrals: Dilip Gallagher MD [Staff Provider] - Disposition: HOME/ ROUTINE Disposition Time: 18:15 Condition: STABLE Additional Instructions: SUTURE REMOVAL IN 7-10 DAYS USE MEDICATIONS DIRECTED, AND FINISH ALL ANTIBIOTICS RETURN TO EMERGENCY ROOM IF YOU HAVE WORSENING PAIN, SWELLING, REDNESS, FEVER, DISCHARGE OR OTHER CONCERNING SYMPTOMS REMOCIN DE SUTURA EN 7-10 KINCAID UTILIZAR LOS MEDICAMENTOS SEGN SE INDICA, Y ACABAR CON TODOS LOS ANTIBITICOS REGRESE A LA YOHANA DE EMERGENCIA SI TIENE DOLOR DE EMBARAZO, HINCHAZN, ENROJECIMIENTO, FIEBRE, DESCARGA U OTROS SNTOMAS RELACIONADOS Prescriptions: Cephalexin [Keflex] 500 mg PO BID #14 capsule Naproxen 375 mg PO BID PRN #20 tablet PRN Reason: pain Sulfamethoxazole/Trimethoprim [Bactrim DS 800 mg-160 mg] 1 tab PO BID #14 tab Instructions: Laceration Repair With Stitches (DC) Forms: [employer] (Palestinian) Print Language: MALTESE - POA Present On Arrival: Falls Or Trauma - Clinical Impression Clinical Impression: Laceration of left thumb
[2017-11-12] MEDS ORDERED: Tmp-Smz 800 mg-160 mg DS Tab ONE (18:13)
[2017-11-12 18:27] VITALS: BP 133/84; PULSE 60; RESP 18; TEMP 97.9
== END 2017-11-12 18:20 | disposition home or self-care (01) ==
LOC: C.ER 16:59
DX: S61.012A Laceration without foreign body of left thumb without damage to nail, initial encounter (principal); W26.0XXA Contact with knife, initial encounter

== ENCOUNTER 2018-06-10 18:37 | Emergency (ER) | payer MEDICAID ==
[2018-06-10 18:55] VITALS: BP 102/68; PULSE 82; RESP 20; TEMP 98.3; O2SAT 98
--- NOTE | 2018-06-10 19:23 | C.PDOC ---
History Of Present Illness 63 y/o male presents to emergency department complaining of lower back pain for 1 week that is worse on his right side. Patient states he played volleyball which worsened the pain, with additional pain in both arms. Patient went home and felt warm, and thought he had a fever, which prompted him to ER. Denies any fall, injury, numbness, weakness, or urinary symptoms Time Seen by Provider: 06/10/18 19:16 Chief Complaint (Nursing): Fever History Per: Patient History/Exam Limitations: no limitations Onset/Duration Of Symptoms: Days Current Symptoms Are (Timing): Still Present Past Medical History Reviewed: Historical Data, Nursing Documentation, Vital Signs Vital Signs: Last Vital Signs Temp 98.3 F 06/10/18 18:52 Pulse 82 06/10/18 18:52 Resp 20 06/10/18 18:52 BP 102/68 06/10/18 18:52 Pulse Ox 98 06/10/18 18:52 - Medical History PMH: Denies: Crohn's Disease, Diverticulitis, Gastritis, Gall Bladder Disease, Pancreatitis, Chronic Kidney Disease - [facility] Procedures EXCISION OF RECTUM, ENDO (01/05/17) EXCISION OF STOMACH, ENDO, DIAGN (01/05/17) TRANSFUSE NONAUT RED BLOOD CELLS IN PERIPH VEIN, PERC (01/05/17) Family History: States: No Known Family Hx - Social History Hx Tobacco Use: Yes Hx Alcohol Use: No Hx Substance Use: No - Immunization History Hx Tetanus Toxoid Vaccination: No Hx Influenza Vaccination: Yes Hx Pneumococcal Vaccination: No Review Of Systems Gastrointestinal: Negative for: Abdominal Pain, Diarrhea Genitourinary: Negative for: Dysuria Musculoskeletal: Positive for: Arm Pain (bilaterally), Back Pain (lower) Neurological: Negative for: Weakness, Numbness Physical Exam - Physical Exam Appears: Well, Non-toxic, No Acute Distress Skin: Warm, Dry, No Rash Head: Atraumatic, Normacephalic Eye(s): bilateral: Normal Inspection Oral Mucosa: Moist Neck: Supple Cardiovascular: Rhythm Regular, No Murmur Respiratory: Normal Breath Sounds, No Rales, No Rhonchi, No Wheezing Back: No CVA Tenderness, No Muscle Spasm, Other (Paralumbar tenderness) Extremity: Bilateral: Normal Color And Temperature, Normal ROM Neurological/Psych: Oriented x3, Normal Speech, Normal Motor, Normal Sensation ED Course And Treatment O2 Sat by Pulse Oximetry: 98 (RA) Pulse Ox Interpretation: Normal Medical Decision Making Medical Decision Making: Impression: low back pain Plan: --Flexeril --Motrin --Urinalysis Progress: UA was negative. On re-eval, patient reports pain mildly improved. He has no fever, numbness or weakness and ambulatory without discomfort. Disposition Counseled Patient/Family Regarding: Diagnosis, Need For Followup, Rx Given - Disposition Referrals: Dilip Gallagher MD [Staff Provider] - Disposition: HOME/ ROUTINE Disposition Time: 20:30 Condition: IMPROVED Additional Instructions: Vaya a levi mdico o la clnica en 2-5 lucero sin falta, para mas evaluacin. [employer] los medicamentos miles indicado. Volver a la renetta de emergencia en cualquier momento si los sntomas persisten o empeoran. Prescriptions: Cyclobenzaprine [Cyclobenzaprine HCl] 10 mg PO TID #30 tab Ibuprofen [Motrin] 600 mg PO Q8 #30 tab Instructions: Low Back Pain (DC) Forms: [employer] (Tunisian) Print Language: BELARUSIAN - POA Present On Arrival: Blood Incompatibility - Clinical Impression Clinical Impression: Low back strain - PA / LOCATION WORKER / Resident Statement MD/DO has reviewed & agrees with the documentation as recorded. - Scribe Statement The provider has reviewed the documentation as recorded by the Scribe Yaquelin Gutierrez All medical record entries made by the Scribe were at my direction and personally dictated by me. I have reviewed the chart and agree that the record accurately reflects my personal performance of the history, physical exam, medical decision making, and the department course for this patient. I have also personally directed, reviewed, and agree with the discharge instructions and disposition.
[2018-06-10 20:00] LABS: SQUAMOUS EPITHIAL < 1 /hpf (0-5); URINE BILIRUBIN NEGATIVE (NEGATIVE); URINE BLOOD NEGATIVE (NEGATIVE); URINE CALCIUM OXALATE CRYSTALS MOD /hpf (<OCC); URINE CLARITY Clear (Clear); URINE COLOR Yellow (YELLOW); URINE GLUCOSE (UA) NORMAL (Normal); URINE LEUKOCYTE ESTERASE NEG Leu/uL (Negative); URINE PROTEIN NEGATIVE (NEGATIVE); URINE UROBILINOGEN NORMAL mg/dL (0.2-1.0)
== END 2018-06-10 20:30 | disposition home or self-care (01) ==
LOC: C.ER 18:37
DX: S39.012A Strain of muscle, fascia and tendon of lower back, initial encounter (principal); X58.XXXA Exposure to other specified factors, initial encounter; Y93.68 Activity, volleyball (beach) (court); Z72.0 Tobacco use